=== PATIENT | male | born 1985 | race Caucasian/White ===

== ENCOUNTER 2018-06-09 17:40 | Emergency (ER) | payer MEDICAID ==
[~2018-06-09] VITALS: Ht 177.8 cm; Wt 87.5 kg
[2018-06-09 17:52] VITALS: BP 165/96
--- NOTE | 2018-06-09 17:56 | NUR ---
Patient ambulated to bed 10 with family. RN evaluating patient at bedside.
--- NOTE | 2018-06-09 18:03 | NUR ---
C/O PAINFUL URINATION FOR 1 WEEK. DENIES FEVER OR DISCHARGE. PT'S AT BEDSIDE, PT REPORTS SOME BLISTERS OVER HIS PENIS AND DOES NOT WANT ME TO ASSESS HIM. PER PT'S SHE WAS TRAETED WITH ANBX FLAGYL LAST WEEK FOR SAME THING. PT DENIES ANY PAIN TO AREA. DENIES FLANK PAIN/ABD PAIN/HEMATURIA.
--- NOTE | 2018-06-09 18:39 | NUR ---
DR BE AT BEDSIDE FOR EXAM
[2018-06-09 19:00] VITALS: BP 129/88
--- NOTE | 2018-06-09 19:00 | NUR ---
Patient discharged with v/s stable. Written and verbal after care instructions given and explained. Patient alert, oriented and verbalized understanding of instructions. Ambulatory with steady gait. All questions addressed prior to discharge. ID band removed. Patient advised to follow up with PMD. Rx of DOXYCYCLINE AND ACYCLOVIR given. Patient educated on indication of medication including possible reaction and side effects. Opportunity to ask questions provided and answered.
== END 2018-06-09 19:00 | disposition home or self-care (01) ==
LOC: MED 17:40
DX: N34.2 Other urethritis (principal)
CPT/HCPCS: 81002; 99283